=== PATIENT | male | born 1995 | race Caucasian/White ===

== ENCOUNTER 2017-12-30 08:26 | Observation (INO) | payer OTHER ==
[2017-12-30] MEDS: NS 1,000 ML IV ×4 (08:43→21:46)
[2017-12-30 09:00] LABS: HEMATOCRIT 45.3 % (42.0-52.0); HEMOGLOBIN 15.7 g/dl (13.5-17.5); MEAN CORPUSCULAR HEMOGLOBIN 30.8 pg (27.0-33.0); MEAN CORPUSCULAR HGB CONC 34.7 g/dl (32.0-36.5); PLATELET COUNT, AUTOMATED 204 10^3/uL (150-450); RED BLOOD COUNT 5.09 10^6/uL (4.30-6.10); RED CELL DISTRIBUTION WIDTH 11.9 % (11.5-14.5); WHITE BLOOD COUNT 6.5 10^3/uL (4.0-10.0)
[2017-12-30 09:03] LABS: ADD MANUAL DIFFER YES; DIFF SLIDE NUMBER 145; POS COUNT POS FLAG; POSITIVE MORPH POS FLAG
[2017-12-30 09:21] LABS: AMMONIA 62 uMOL/L (<32)
[2017-12-30 09:26] LABS: ATYPICAL LYMPH 4 % (0-5); EOSINOPHILS 2 % (0-5); LYMPHOCYTES 19 % (16-52); MONOCYTES 3 % (0-8); MYELOCYTES 1 % (0-0); NEUTROPHILS 71 % (35-75)
[2017-12-30 09:27] LABS: PLATELET ESTIMATE NORMAL (NORMAL)
[2017-12-30 09:29] LABS: ANISOCYTOSIS 1+
[2017-12-30 09:38] LABS: ACETAMINOPHEN LEVEL < 2.0 UG/ML (10.0-30.0); ALBUMIN 4.3 GM/DL (3.2-5.2); ALBUMIN/GLOBULIN RATIO 1.65 (1.00-1.93); ALKALINE PHOSPHATASE 108 U/L (45-117); ALT/SGPT 33 U/L (12-78); ANION GAP 9 MEQ/L (8-16); AST/SGOT 26 U/L (7-37); BILIRUBIN,DIRECT 0.1 MG/DL (0.0-0.2); BILIRUBIN,TOTAL 0.4 MG/DL (0.2-1.0); BLOOD UREA NITROGEN 19 MG/DL (7-18); CALCIUM LEVEL 8.7 MG/DL (8.5-10.1); CARBON DIOXIDE LEVEL 24 MEQ/L (21-32); CHLORIDE LEVEL 109 MEQ/L (98-107); CPK CREATINE PHOSPHOKINASE 274 U/L (39-308); GLUCOSE, FASTING 157 MG/DL (70-100); MB/CK RELATIVE INDEX 1.13 (< OR =4); POTASSIUM SERUM 4.1 MEQ/L (3.5-5.1); SALICYLATE LEVEL < 1.7 MG/DL (5.0-30.0); SODIUM LEVEL 142 MEQ/L (136-145); TOTAL PROTEIN 6.9 GM/DL (6.4-8.2); TROPONIN I 0.08 NG/ML (< 0.10)
[2017-12-30 09:39] LABS: ETHYL ALCOHOL (ETHANOL) < 0.003 % (0.000-0.010)
[2017-12-30 09:55] LABS: KETONE, URINE AUTO RFX NEGATIVE (NEGATIVE); LEUKOCYTE ESTERASE UR AUTO RFX NEGATIVE (NEGATIVE); MUCUS, URINE RFX SMALL (NEGATIVE); NITRITE, URINE AUTO RFX NEGATIVE (NEGATIVE); RBC, URINE AUTO RFX 3 /HPF (0-3); SPECIFIC GRAVITY UR AUTO RFX 1.013 (1.002-1.035); SQUAM EPITHELIAL CELL UR AURFX 0 /HPF (0-6); WBC, URINE AUTO RFX 6 /HPF (0-3)
[2017-12-30 10:39] LABS: AMPHETAMINES LEVEL URINE NEGATIVE (NEGATIVE); BARBITURATES URINE NEGATIVE (NEGATIVE); BENZODIAZEPINES URINE NEGATIVE (NEGATIVE); CANNABINOIDS URINE NEGATIVE (NEGATIVE); COCAINE METABOLITE URINE NEGATIVE (NEGATIVE); METHADONE URINE NEGATIVE (NEGATIVE); OPIATES URINE NEGATIVE (NEGATIVE); PHENCYCLIDINE URINE NEGATIVE (NEGATIVE)
[2017-12-30 11:08] LABS: GOLD SPEC TUBE RECIEVED
[2017-12-30] MEDS ORDERED: ACETAMINOPHEN TAB 650MG DOSE (2X325MG) PO (13:15)
[2017-12-30] MEDS: ONDANSETRON 4MG/2ML VIAL (J2405) IV ×2 (13:41→15:35)
[2017-12-30] MEDS: ENOXAPARIN 40 MG/0.4 ML SYRINGE (J1650) SC (13:41)
[2017-12-30] MEDS: SERTRALINE 100 MG TAB PO (14:51)
[2017-12-30] MEDS: buPROPion **XL** TABLET 150MG (WELLBUTRIN XL) PO (15:34)
[2017-12-30] MEDS: METOCLOPRAMIDE INJ 10MG/2ML VIAL (J2765) IV (18:48)
[2017-12-30] MEDS: AMITRIPTYLINE 25 MG TAB PO (20:01)
[2017-12-30] MEDS: busPIRone 10 MG TAB PO (20:01)
[2017-12-31] MEDS: NS 1,000 ML IV ×2 (06:32→13:58)
[2017-12-31] MEDS: SERTRALINE 100 MG TAB PO (08:39)
[2017-12-31] MEDS: busPIRone 10 MG TAB PO ×2 (08:39→21:22)
[2017-12-31] MEDS: buPROPion **XL** TABLET 150MG (WELLBUTRIN XL) PO (08:39)
[2017-12-31] MEDS: ENOXAPARIN 40 MG/0.4 ML SYRINGE (J1650) SC (08:39)
[2017-12-31 09:50] LABS: HEMATOCRIT 44.7 % (42.0-52.0); HEMOGLOBIN 14.9 g/dl (13.5-17.5); MEAN CORPUSCULAR HEMOGLOBIN 30.4 pg (27.0-33.0); MEAN CORPUSCULAR HGB CONC 33.3 g/dl (32.0-36.5); MEAN CORPUSCULAR VOLUME 91.2 fl (80.0-96.0); PLATELET COUNT, AUTOMATED 196 10^3/uL (150-450); RED CELL DISTRIBUTION WIDTH 11.9 % (11.5-14.5); WHITE BLOOD COUNT 7.2 10^3/uL (4.0-10.0)
[2017-12-31 10:16] LABS: AMMONIA 26 uMOL/L (<32)
[2017-12-31 10:23] LABS: ANION GAP 6 MEQ/L (8-16); BLOOD UREA NITROGEN 9 MG/DL (7-18); CALCIUM LEVEL 8.7 MG/DL (8.5-10.1); CARBON DIOXIDE LEVEL 27 MEQ/L (21-32); CHLORIDE LEVEL 110 MEQ/L (98-107); CREATININE FOR GFR 0.82 MG/DL (0.70-1.30); GLUCOSE, FASTING 91 MG/DL (70-100); MAGNESIUM LEVEL 2.2 MG/DL (1.8-2.4); POTASSIUM SERUM 4.1 MEQ/L (3.5-5.1); SODIUM LEVEL 143 MEQ/L (136-145)
[2017-12-31] MEDS: INFLUENZA QUADRIVALENT PF VACCINE 0.5ML SYRINGE (90686) IM (10:34)
[2017-12-31] MEDS: AMITRIPTYLINE 25 MG TAB PO (21:22)
[2018-01-01 07:06] LABS: HEMATOCRIT 42.7 % (42.0-52.0); HEMOGLOBIN 14.5 g/dl (13.5-17.5); MEAN CORPUSCULAR HEMOGLOBIN 30.4 pg (27.0-33.0); MEAN CORPUSCULAR VOLUME 89.5 fl (80.0-96.0); PLATELET COUNT, AUTOMATED 171 10^3/uL (150-450); RED BLOOD COUNT 4.77 10^6/uL (4.30-6.10); RED CELL DISTRIBUTION WIDTH 11.8 % (11.5-14.5); WHITE BLOOD COUNT 5.3 10^3/uL (4.0-10.0)
[2018-01-01 07:31] LABS: ANION GAP 8 MEQ/L (8-16); BLOOD UREA NITROGEN 11 MG/DL (7-18); CALCIUM LEVEL 8.5 MG/DL (8.5-10.1); CARBON DIOXIDE LEVEL 26 MEQ/L (21-32); CHLORIDE LEVEL 108 MEQ/L (98-107); CREATININE FOR GFR 0.76 MG/DL (0.70-1.30); GLUCOSE, FASTING 97 MG/DL (70-100); MAGNESIUM LEVEL 2.1 MG/DL (1.8-2.4); POTASSIUM SERUM 3.9 MEQ/L (3.5-5.1); SODIUM LEVEL 142 MEQ/L (136-145)
[2018-01-01] MEDS: buPROPion **XL** TABLET 150MG (WELLBUTRIN XL) PO (08:38)
[2018-01-01] MEDS: busPIRone 10 MG TAB PO (08:38)
[2018-01-01] MEDS: ENOXAPARIN 40 MG/0.4 ML SYRINGE (J1650) SC (08:56)
[2018-01-01] MEDS: SERTRALINE 100 MG TAB PO (08:56)
== END 2018-01-01 10:45 | disposition home or self-care (01) ==
LOC: M MS5PR 12-31 07:37 → M ED 08:26 → M ED INP 13:05 → M MSPAV 15:25 → M PED 22:20
DX: R41.82 Altered mental status, unspecified (principal); E86.0 Dehydration; Z79.899 Other long term (current) drug therapy; F32.9 Major depressive disorder, single episode, unspecified; R45.851 Suicidal ideations
CPT/HCPCS: J2405

== ENCOUNTER 2018-04-10 12:09 | Observation (INO) | payer OTHER ==
[~2018-04-10] VITALS: Ht 170.2 cm; Wt 80.5 kg
[~2018-04-10 12:09] MED LIST: AMIT25TA PO; BUSP10TA PO; SERT-138 PO; WELLTAB40 PO
[2018-04-10] MEDS ORDERED: diphenhydrAMINE INJ 50MG/ML VIAL (J1200) IV STA (12:31)
[2018-04-10] MEDS ORDERED: NS 1,000 ML IV SCH (12:31)
[2018-04-10 12:42] LABS: BASO % 0.3 % (0.0-1.0); EOS % 0.3 % (0.0-3.0); HEMATOCRIT 45.7 % (42.0-52.0); HEMOGLOBIN 15.4 g/dl (13.5-17.5); LYMPH % 13.4 % (24.0-44.0); MEAN CORPUSCULAR HEMOGLOBIN 30.3 pg (27.0-33.0); MEAN CORPUSCULAR HGB CONC 33.7 g/dl (32.0-36.5); MEAN CORPUSCULAR VOLUME 89.8 fl (80.0-96.0); MONO # 0.6 10^3/uL (0.0-0.8); MONO % 8.1 % (0.0-5.0); NEUTROPHILS # 5.7 10^3/uL (1.8-7.7); NEUTROPHILS % 77.2 % (36.0-66.0); RED BLOOD COUNT 5.09 10^6/uL (4.30-6.10); WHITE BLOOD COUNT 7.4 10^3/uL (4.0-10.0)
[2018-04-10] MEDS ORDERED: dexameTHASONE 20 MG/5 ML VIAL (J1100) IV ONE (12:45)
--- NOTE | 2018-04-10 12:58 | REP ---
Clinical: Drug overdose . Comparison: 12/30/2017 . Findings: The mediastinum and cardiac silhouette are stable and within normal limits for portable technique. The lung perry are clear without acute consolidation, effusion, or pneumothorax. Skeletal structures are intact. Impression: No acute cardiopulmonary process appreciated. Electronically Signed by Tomas Delatorre MD 04/10/2018 12:50 P
[2018-04-10 13:04] LABS: PLATELET COUNT, AUTOMATED 250 10^3/uL (150-450)
[2018-04-10 13:08] LABS: ACETAMINOPHEN LEVEL < 2.0 UG/ML (10.0-30.0); ALBUMIN 4.1 GM/DL (3.2-5.2); ALT/SGPT 24 U/L (12-78); BILIRUBIN,DIRECT < 0.1 MG/DL (0.0-0.2); BILIRUBIN,TOTAL 0.2 MG/DL (0.2-1.0); BLOOD UREA NITROGEN 23 MG/DL (7-18); CALCIUM LEVEL 8.8 MG/DL (8.5-10.1); CARBON DIOXIDE LEVEL 27 MEQ/L (21-32); CHLORIDE LEVEL 112 MEQ/L (98-107); CPK CREATINE PHOSPHOKINASE 118 U/L (39-308); CREATININE FOR GFR 0.86 MG/DL (0.70-1.30); ETHYL ALCOHOL (ETHANOL) < 0.003 % (0.000-0.010); GLUCOSE, FASTING 100 MG/DL (70-100); POTASSIUM SERUM 4.3 MEQ/L (3.5-5.1); SALICYLATE LEVEL < 1.7 MG/DL (5.0-30.0); SODIUM LEVEL 146 MEQ/L (136-145); THYROID STIMULATING HORMONE 0.499 uIU/ML (0.463-3.98); TOTAL PROTEIN 7.4 GM/DL (6.4-8.2)
[2018-04-10 13:17] LABS: VENOUS BASE EXCESS -0.6 (-2.0-2.0); VENOUS HCO3 24.9 MEQ/L (23.0-27.0); VENOUS O2 SATURATION 95.1 % (60.0-80.0); VENOUS PARTIAL PRESSURE CO2 44.1 mmHg (38.0-50.0); VENOUS PARTIAL PRESSURE O2 73.6 mmHg (30.0-50.0); VENOUS STANDARD HCO3 23.9 MEQ/L; VENOUS TOTAL CO2 26.3 MEQ/L (24.0-28.0)
[2018-04-10 13:19] LABS: OSMOLALITY SERUM 306 MOSM/KG (275-295)
[2018-04-10] MEDS ORDERED: LIDOCAINE VISCOUS 2% SOLN 15ML UDC SS ONE (14:45)
[2018-04-10] MEDS ORDERED: AMOXICILLIN 500 MG CAP PO ONE (14:45)
[2018-04-10] MEDS ORDERED: NS 1,000 ML IV ONE ×2 (15:00→15:30)
[2018-04-10] MEDS ORDERED: BUSP15TA47 PO (15:21)
[2018-04-10] MEDS ORDERED: AMIT50TA PO (15:21)
[2018-04-10 16:16] LABS: AMPHETAMINES LEVEL URINE NEGATIVE (NEGATIVE); BARBITURATES URINE NEGATIVE (NEGATIVE); BENZODIAZEPINES URINE NEGATIVE (NEGATIVE); CANNABINOIDS URINE NEGATIVE (NEGATIVE); COCAINE METABOLITE URINE NEGATIVE (NEGATIVE); METHADONE URINE NEGATIVE (NEGATIVE); OPIATES URINE NEGATIVE (NEGATIVE); PHENCYCLIDINE URINE NEGATIVE (NEGATIVE)
[2018-04-10] MEDS: NS 0.45% 1,000 ML IV SCH (16:42)
[2018-04-10 17:00] VITALS: BP 161/91
[2018-04-10 18:00] VITALS: BP 161/87
[2018-04-10 19:00] VITALS: BP 158/77
[2018-04-10 20:00] VITALS: BP 145/66
[2018-04-10] MEDS: AUGMENTIN 875 MG TAB PO SCH (20:44)
[2018-04-10 22:00] VITALS: BP 136/68
[2018-04-11] VITALS: BP 129/62
[2018-04-11] MEDS: NS 0.45% 1,000 ML IV SCH ×2 (00:29→09:00)
[2018-04-11 04:00] VITALS: BP 152/76
[2018-04-11 05:18] LABS: ALBUMIN 3.9 GM/DL (3.2-5.2); ALT/SGPT 23 U/L (12-78); BILIRUBIN,TOTAL 0.2 MG/DL (0.2-1.0); BLOOD UREA NITROGEN 16 MG/DL (7-18); CALCIUM LEVEL 8.8 MG/DL (8.5-10.1); CARBON DIOXIDE LEVEL 27 MEQ/L (21-32); CHLORIDE LEVEL 110 MEQ/L (98-107); CREATININE FOR GFR 0.84 MG/DL (0.70-1.30); GLUCOSE, FASTING 135 MG/DL (70-100); POTASSIUM SERUM 4.1 MEQ/L (3.5-5.1); SODIUM LEVEL 146 MEQ/L (136-145); TOTAL PROTEIN 7.3 GM/DL (6.4-8.2)
--- NOTE | 2018-04-11 07:22 | ECGEPIP ---
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
[2018-04-11 08:39] VITALS: BP 141/79
[2018-04-11] MEDS: AUGMENTIN 875 MG TAB PO SCH ×2 (11:30→20:01)
[2018-04-11 12:00] VITALS: BP 124/60
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
[2018-04-11 20:00] VITALS: BP 140/55
[2018-04-12] VITALS: BP 126/81
[2018-04-12 04:00] VITALS: BP 136/64
[2018-04-12 04:54] LABS: HEMATOCRIT 45.2 % (42.0-52.0); HEMOGLOBIN 14.7 g/dl (13.5-17.5); MEAN CORPUSCULAR HEMOGLOBIN 30.4 pg (27.0-33.0); MEAN CORPUSCULAR HGB CONC 32.5 g/dl (32.0-36.5); MEAN CORPUSCULAR VOLUME 93.6 fl (80.0-96.0); PLATELET COUNT, AUTOMATED 237 10^3/uL (150-450); RED BLOOD COUNT 4.83 10^6/uL (4.30-6.10); WHITE BLOOD COUNT 13.4 10^3/uL (4.0-10.0)
[2018-04-12 05:03] LABS: BLOOD UREA NITROGEN 17 MG/DL (7-18); CALCIUM LEVEL 8.1 MG/DL (8.5-10.1); CARBON DIOXIDE LEVEL 30 MEQ/L (21-32); CHLORIDE LEVEL 108 MEQ/L (98-107); CREATININE FOR GFR 0.86 MG/DL (0.70-1.30); GLUCOSE, FASTING 107 MG/DL (70-100); MAGNESIUM LEVEL 1.9 MG/DL (1.8-2.4); POTASSIUM SERUM 3.9 MEQ/L (3.5-5.1); SODIUM LEVEL 143 MEQ/L (136-145)
--- NOTE | 2018-04-12 06:27 | HPE ---
DATE OF ADMISSION: 04/11/2018 HISTORY OF PRESENT ILLNESS (HPI): This is a 22-year-old male with a past medical history of anxiety and depression who presents to the emergency room after being found by his fellow colleagues with a suicidal note and an empty bottle of BuSpar. The patient came to the emergency room and was awake and alert and did admit that he was wanted to commit suicide and did admit to taking the BuSpar. Poison Control was consulted and their recommendation was to monitor him for six hours; however, during this time in the emergency room (ER) his blood pressure started to fluctuate going as high as 200 systolic and then dropping back down to 130. His heart rate also Would jump form 80 to 130-120 and then come back down. That being told to Poison Control, they feel that this is more likely a side effect of the Wellbutrin though the patient denies abusing or consuming this drug. Thus, the conclusion was to observe this patient for 24 hours on observation. The patient at this time is still suicidal. He denies any other associative complaints. PAST MEDICAL HISTORY: Depression and anxiety. ALLERGIES: No known drug allergies. FAMILY HISTORY: Noncontributory. SOCIAL HISTORY: The patient denies tobacco, alcohol or illicit drugs. HOME MEDICATIONS: - Amitriptyline 50 mg orally daily - bupropion 20 mg orally daily - buspirone 50 mg orally two times a day REVIEW OF SYSTEMS: Negative for all 10 major systems except as mentioned in the HPI. VITAL SIGNS: Blood pressure 136/68, heart rate 68 and regular, respirations 20, temperature 98.9, Oxygen saturation 90% on room air. HEENT: Normocephalic atraumatic. NECK: Supple, no jugular venous distention (JVD). LUNGS: Clear to auscultation. HEART: S1, S2 audible, no murmurs appreciated. ABDOMEN: Soft, positive bowel sounds. EXTREMITIES: No pedal edema. SKIN: Intact. NEUROLOGIC EXAM: The patient is awake, alert and oriented times three. LABORATORY DATA: WBC 7.4, hemoglobin 15.4, hematocrit 45.7, Platelets 223,000. Sodium 146, potassium 4.3, chloride 112, CO2 27, BUN 23, creatinine 0.86. TSH 0.499. Urine tox was negative. Urinalysis was negative. IMPRESSION: 1. Overdose. 2. Suicidal ideation . 3. Hypernatremia. PLAN: The patient is to be admitted to the intensive care unit (ICU). Will have a one-to-one watch with him and will see how his mental status and suicidal ideations are upon the next morning. If it continues will get psychiatry consulted for clearance and for treatment. Will continue monitoring his vitals in the ICU. I am holding all of his preadmission medications for now. As far as the hypernatremia is concerned, will start half normal saline at 125 mL an hour and monitor his sodium trends. NOTE: The noncommissioned officer (NCO) spoke to me and said that his colleagues explained to him that he had wrote this suicidal note and also drank a whole bottle of whiskey the night prior so this patient's denial of drinking any alcohol beverages in the social history is false.
--- NOTE | 2018-04-12 07:09 | IPN ---
DATE: 04/11/2018 SUBJECTIVE: Patient is seen and examined in the room today. The patient denies any complaints. The patient admits that he took a large amount of BuSpar. He does not remember the exact amount but he thinks it is more than 10 pills. He admitted that it was an attempt to hurt himself. No events were reported on telemetry. Vitals stable. Appears to be . VITAL SIGNS: Temperature 97.9, pulse 79, respirations 18, blood pressure 141/79, pulse oximetry 99% in room air. GENERAL: No signs of acute distress. Alert, awake and oriented. HEENT: Normocephalic, atraumatic. Extraocular motors grossly intact. CARDIOVASCULAR: Positive S1 and S2, regular rate. LUNGS: Clear to auscultation bilaterally. ABDOMEN: Soft, nontender, nondistended. Bowel sounds present. EXTREMITIES: No edema. LABORATORY DATA: Sodium is 146, potassium 4.1, chloride is 110, carbon dioxide is 27, BUN 16, creatinine 0.8, fasting glucose 135, calcium 8.8, total bilirubin 0.2, AST 15, ALT 23, alkaline phosphatase 92, total protein 7.3, albumin 3.9. ASSESSMENT/PLAN: 1. Suicidal attempt by medication overdose. The patient is cleared by Poison Control. The patient's vitals have remained stable. The patient will be placed on diet and advance as tolerated. IV fluid will be discontinued. Psychiatry is consulted. 2. Anxiety/depression. According to the records, the patient is taking amitriptyline, Wellbutrin, and BuSpar. Those medications will be on hold at this moment. 3. Deep vein thrombosis (DVT) prophylaxis. The patient has thromboembolic deterrent stockings (TEDS) and compression ordered.
[2018-04-12 08:01] VITALS: BP 114/57
[2018-04-12] MEDS: AUGMENTIN 875 MG TAB PO SCH (09:01)
--- NOTE | 2018-04-12 11:15 | MHIPNPDOC ---
[facility] Progress Note Progress Note DATE OF SERVICE: 04/12/18 CONSULTATION REQUESTED BY: Dr. Montiel REASON FOR CONSULTATION: s/p SA by OD RELEVANT HISTORY: Pt is a 22y/o CM, AD with a history of depression and SA by OD in the past who was admitted to ICU s/p OD on a "handful" of buspar 15mg, total amount unknown, as a SA. Consulted to see pt regarding SA by OD. Pt currently in ICU and being treated and monitored medically s/p OD. Pt seen and states he's doing ok. States he took an unknown amount of buspar this morning b/c he was feeling depressed b/c he found out that his dog that lives with his family may have to be put down after being attacked by another family dog. States there are other psychosocial stressors but that is the most recent. Evasive about other stressors. States that he feels his mood is better now and that "I've learned my lesson" and doesn't want to attempt to harm himself again as he doesn't want to "loose everything." He states his current psychiatric medications are beneficial. Feels safe here and denies current SI/HI today. Pt seen today on follow-up and states he's "ok," just bored in ICU. Admits he has had intent for SI in the past multiple times that he didn't act on and this is the first time he acted on it. More open to discussing his depression and recent overdose. States he admits he doesn't often talk about his feelings. Believes that admission and unit treatment with groups on [facility] will be benefi cial for him and would like admission. Currently denies SI/HI, intent, plan. Feels safe in the hospital. MENTAL STATUS EXAMINATION: Patient is a 22-year old male, who is seen in hospital bed resting comfortable Speech is reg rate/rhythm/volume Language skills are good Thought processes including: linear/logical, depressive thoughts Thought content:denies SI/HI, AVH Abstract reasoning, and computation: intact Description of associations: appropriate Description of abnormal or psychotic thoughts: denies hallucinations and delusions Judgment: fair Insight: fair Orientation to x3 Recent and remote memory: intact Attention span and concentration: good Language: appropriate Fund of knowledge: average Mood: "bored" Affect: depressed, anxious, constricted DIAGNOSIS: 1. Depression unspecified PLAN: 1. continue with medical stabilization 2. transfer to [facility] once cleared medically Vital Signs Vital Signs Date Time Temp Pulse Resp B/P (MAP) Pulse Ox O2 Delivery O2 Flow Rate FiO2 04/12/18 08:01 99.2 68 16 114/57 (76) 99 04/10/18 12:18 Room Air Laboratory Data 24H Labs Laboratory Tests 2 04/12/18 04:36: Nucleated Red Blood Cells % (auto) 0.0, Anion Gap 5L, Blood Urea Nitrogen 17, Creatinine 0.86, Sodium Level 143, Potassium Level 3.9, Chloride Level 108H, Carbon Dioxide Level 30, Calcium Level 8.1L, Magnesium Level 1.9 CBC/BMP Laboratory Tests 04/12/18 04:36 Red Blood Count 4.83, Mean Corpuscular Volume 93.6, Mean Corpuscular Hemoglobin 30.4, Mean Corpuscular Hemoglobin Concent 32.5, Red Cell Distribution Width 12.3, Calcium Level 8.1 L Current Medications Current Medications Amoxicillin/ Clavulanate Potassium (Augmentin) 875 mg BID PO Last administered on 04/12/18 09:01; Start 04/10/18 at 21:00 Diphenhydramine HCl (Benadryl) 25 mg STAT STAT IV Last administered on 04/10/18 12:39; Start 04/10/18 at 12:31; Stop 04/10/18 at 12:34; Status DC Home Med (Med Rec Complete!) ASDIRECTED XX ; Start 04/10/18 at 15:30; Stop 04/10/18 at 15:30; Status DC Sodium Chloride 1,000 ml @ 100 mls/hr Q10H IV Last administered on 04/10/18at 12:39; Start 04/10/18 at 12:31; Stop 04/10/18 at 16:37; Status DC Sodium Chloride 1,000 ml @ 125 mls/hr Q8H IV Last administered on 04/11/18 09:00; Start 04/10/18 at 17:00; Stop 04/11/18 at 11:47; Status DC Allergies Coded Allergies: No Known Drug Allergy (Verified Allergy, Unknown, 12/30/17) NANCY VILLAGRAN DO Apr 12, 2018 10:39
--- NOTE | 2018-04-12 17:59 | DSES ---
DATE OF ADMISSION: 04/10/2018 DATE OF DISCHARGE: 04/12/2018 CONSULTANTS: Psychiatrist DISCHARGE DIAGNOSES: 1. Suicidal attempt by medication overdose. 2. Anxiety/depression. HOSPITALIZATION COURSE: The patient is a 22-year-old gentleman brought to [facility] on 04/10/2018 after intentional drug overdose. Patient was admitted under hospitalist service in the intensive care unit (ICU) and Poison Control has been following the case. Patient was started on nothing by mouth with IV fluids. Later, patient's vital signs remained stable, IV fluids discontinued, and diet advanced. Psychiatry was consulted. On 04/12/2018, patient was discharged from the hospitalist service and patient was admitted in the inpatient mental health unit (IMHU). Patient was recommended to follow up with their primary care provider. OBJECTIVE: VITAL SIGNS: Temperature 99.2, pulse 68, respiratory rate 16, blood pressure 114/57, pulse oximetry 99% in room air. LABORATORY DATA: WBC 13.4, hemoglobin 14.7, hematocrit 45.2, platelet count 237, sodium 143, potassium 3.9, chloride 108, carbon dioxide 30, BUN 17, creatinine 0.86, GFR is 107, calcium 8.1, magnesium 1.9. MICROBIOLOGY: Respiratory panel is negative. IMAGING STUDIES: Chest x-ray showed no acute cardiopulmonary process. DISCHARGE MEDICATIONS: None. At baseline, patient is taking amitriptyline with bupropion and buspirone. Due to a history of intentional drug overdose, those medications will be on hold at the time of discharge. DISCHARGE INSTRUCTIONS: Discontinue lines. Discharge patient to inpatient mental health unit (IMHU). Activity as tolerated. Diet as tolerated. Patient should followup with primary care provider at [facility] in 1 week after discharge. Patient is recommended to followup with psychiatry at scheduled time. DISCHARGE CONDITION: Fair. DISCHARGE TIME: Greater than 30 minutes.
== END 2018-04-12 14:46 ==
LOC: M ED 12:09 → EDBD 12:09 → M ED INP 16:06 → M ICU 16:49
PROVIDERS: ADMIT Internal Medicine; ATTEND Internal Medicine
DX: T14.91XA Suicide attempt, initial encounter (principal); T50.992A Poisoning by other drugs, medicaments and biological substances, intentional self-harm, initial encounter; F32.9 Major depressive disorder, single episode, unspecified; F41.9 Anxiety disorder, unspecified; E87.0 Hyperosmolality and hypernatremia; Z79.899 Other long term (current) drug therapy; Y92.9 Unspecified place or not applicable
CPT/HCPCS: 36415; 71045; 80048; 80053; 80076; 80307; 82550; 82803; 83605; 83735; 83930; 84443; 85025; 85027; 87486; 87581; 87633; 87798; 93005; 93041; 96361; 96374; 96375; 99285; G0480; J1100; J1200

== ENCOUNTER 2018-04-12 13:12 | Inpatient (IN) | payer OTHER ==
[~2018-04-12] VITALS: Ht 170.2 cm; Wt 81.8 kg
[2018-04-12] MEDS: AUGMENTIN 875 MG TAB PO SCH ×2 (09:00→22:52)
[2018-04-12] MEDS: NICOTINE 21MG/24HR 1 EA TRANSDERMAL TD SCH (09:00)
[~2018-04-12 13:12] MED LIST changes: +AMIT50TA PO; +BUSP15TA47 PO
[2018-04-12] MEDS ORDERED: MOM 30ML SUSPENSION UDC PO PRN (13:30)
[2018-04-12] MEDS ORDERED: MAALOX 30 ML SUSP *UDC PO PRN (13:30)
[2018-04-12] MEDS ORDERED: traZODone 50 MG TAB PO PRN (13:30)
[2018-04-12] MEDS ORDERED: ACETAMINOPHEN TAB 650MG DOSE (2X325MG) PO PRN (13:30)
[2018-04-12 14:57] VITALS: BP 123/73
[2018-04-12] MEDS: buPROPion **XL** TABLET 150MG (WELLBUTRIN XL) PO SCH (16:29)
[2018-04-12 18:00] VITALS: BP 122/70
[2018-04-13 06:32] VITALS: BP 123/68
[2018-04-13] MEDS: NICOTINE 21MG/24HR 1 EA TRANSDERMAL TD SCH (09:00)
[2018-04-13] MEDS: buPROPion **XL** TABLET 150MG (WELLBUTRIN XL) PO SCH (09:20)
[2018-04-13] MEDS: AUGMENTIN 875 MG TAB PO SCH ×2 (09:20→21:12)
--- NOTE | 2018-04-13 09:55 | HPEPDOC ---
[facility] Medical History & Physical Date of Admission Apr 12, 2018 History and Physical PCP: [facility] ATTENDING: Dr. Eliel Velázquez HPI: 22yoM admitted to [facility] 04/10/18-04/12/18 related to suicide attempt with in tentional drug overdose. Poison control was consulted, the Pt was medically stabilized and transferred to [facility] 04/12/18. The pt is being medically examined today. The patient reports no acute medical complaints today. Denies any fevers, chills, weakness, fatigue, MENDEZ, CP, SOB, cough, palpitations, abdominal pain, N/V/D or changes in bowel or bladder habits. PMHx: anxiety depression PSHX: denies SOCHX: Resides in: [facility], from [place]. 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 ROS: As noted in HPI, otherwise 11pt ROS of systems reviewed and unremarkable. PE: GEN: 22yoM, appears stated age. Well-nourished, well developed. No acute distress. Alert and oriented x 3. Pleasant, interactive. HEENT: Normocephalic, atraumatic. Pupils are equal, round, and reactive to light. Extraocular movements are intact. No nystagmus appreciated. Sclera are nonicteric. Conjunctiva without injection. Nose midline. Nasal turbinates without bogginess. EACs both patent BL. TMs both visualized and yusuf with good cone of light, no bulging or erythema. No facial asymmetry. Moist mucous membranes. Dentition fair. Pharynx pink and moist, no cobblestoning. Neck supple, trachea midline. No lymphadenopathy or thyromegaly appreciated. CHEST: Regular rate and rhythm, +S1, +S2 LUNGS: Clear to auscultation bilaterally. No wheezes, rales, or rhonchi. Breathing appears symmetric and easy. Patient is speaking in full sentences. No accessory muscle use. ABD: Round, soft, non-tender, non-distended. +Bowel sounds throughout. No rebound or guarding. No costovertebral angle tenderness. EXT: Pulses 2+ bilaterally dorsalis pedis and radial. No lower extremity edema appreciated. SKIN: [place], dry, warm. Capillary refill <2sec. No rashes. NEURO: Alert and oriented x 3. Cranial nerves III-XII are intact. No focal deficits appreciated. EKG: SINUS RHYTHM INCOMPLETE RIGHT BUNDLE BRANCH BLOCK ST ELEVATION CONSISTENT WITH INJURY, PERICARDITIS, OR EARLY REPOLARIZATION NONSPECIFIC ST & T-WAVE ABNORMALITY DECREASED RATE 12/30/17 Electronically Signed On 04-11-2018 7:21:57 EST by Thelma Boothe 04/10/18 RESPIRATORY PANEL Final NEGATIVE by MULTIPLEXED NUCLEIC ACID PCR 04/10/18 CXR No acute cardiopulmonary process appreciated. Electronically Signed by Tomas Delatorre MD 04/10/2018 12:50 P A&P: 22yoM admitted to [facility] 04/10/18-04/12/18 related to suicide attempt with intentional drug overdose. Pt was transferred to [facility] 04/12/18. 1. Psych. Plan per Psychiatry. EKG on file. 2. Nicotine dependence. Patch available. 3. Possible respiratory infection. Pt is afebrile. WBC 13.4 04/12/18, will recheck in AM. Pt will finish course of Augmentin. Monitor. 4. Follow up with PCP on discharge. 5. Staff member Ed present throughout exam. Vital Signs Vital Signs Date Time Temp Pulse Resp B/P (MAP) Pulse Ox O2 Delivery O2 Flow Rate FiO2 04/13/18 06:32 97.7 70 70 123/68 (86) 04/12/18 14:57 97 Laboratory Data Labs 24H Item Value Date Time White Blood Count 13.4 10^3/uL H 04/12/18 0436 Red Blood Count 4.83 10^6/uL 04/12/18 0436 Hemoglobin 14.7 g/dl 04/12/18 0436 Hematocrit 45.2 % 04/12/186 Mean Corpuscular Volume 93.6 fl 04/12/186 Mean Corpuscular Hemoglobin 30.4 pg 04/12/186 Mean Corpuscular Hemoglobin Concent 32.5 g/dl 04/12/18 0436 Red Cell Distribution Width 12.3 % 04/12/18435 Platelet Count 237 10^3/uL 04/12/18 0436 Sodium Level 143 MEQ/L 04/12/18 0436 Potassium Level 3.9 MEQ/L 04/12/18 0436 Chloride Level 108 MEQ/L H 04/12/18 0436 Carbon Dioxide Level 30 MEQ/L 04/12/18 0436 Anion Gap 5 MEQ/L L 04/12/18 0436 Blood Urea Nitrogen 17 MG/DL 04/12/18 0436 Creatinine 0.86 MG/DL 04/12/18 0436 Fasting Glucose 107 MG/DL H 04/12/18 0436 Calcium Level 8.1 MG/DL L 04/12/18 0436 Magnesium Level 1.9 MG/DL 04/12/18 0436 Salicylates Level < 1.7 MG/DL L 04/10/18 1231 Urine Opiates Screen NEGATIVE 04/10/18 1553 Urine Methadone Screen NEGATIVE 04/10/18 1553 Acetaminophen Level < 2.0 UG/ML L 04/10/18 1231 Urine Barbiturates Screen NEGATIVE 04/10/18 1553 Urine Phencyclidine Screen NEGATIVE 04/10/18 1553 Urine Amphetamines Screen NEGATIVE 04/10/18 1553 Urine Benzodiazepines Screen NEGATIVE 04/10/18 1553 Urine Cocaine Metabolite Screen NEGATIVE 04/10/18 1553 Urine Cannabinoids Screen NEGATIVE 04/10/18 1553 Ethyl Alcohol Level < 0.003 % 04/10/18 1231 Home Medications No Active Prescriptions or Reported Meds Allergies Coded Allergies: No Known Drug Allergy (Verified Allergy, Unknown, 12/30/17) Geno Morris Apr 13, 2018 09:55
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
[2018-04-13] MEDS ORDERED: hydrOXYzine 25 MG TAB PO PRN (10:45)
[2018-04-13 18:00] VITALS: BP 136/85
[2018-04-14 06:37] VITALS: BP 115/60
[2018-04-14 06:52] LABS: HEMATOCRIT 47.4 % (42.0-52.0); HEMOGLOBIN 15.8 g/dl (13.5-17.5); MEAN CORPUSCULAR HEMOGLOBIN 30.2 pg (27.0-33.0); MEAN CORPUSCULAR HGB CONC 33.3 g/dl (32.0-36.5); MEAN CORPUSCULAR VOLUME 90.6 fl (80.0-96.0); PLATELET COUNT, AUTOMATED 215 10^3/uL (150-450); RED BLOOD COUNT 5.23 10^6/uL (4.30-6.10); WHITE BLOOD COUNT 7.3 10^3/uL (4.0-10.0)
[2018-04-14] MEDS: AUGMENTIN 875 MG TAB PO SCH ×2 (08:19→20:31)
[2018-04-14] MEDS: buPROPion **XL** TABLET 150MG (WELLBUTRIN XL) PO SCH (08:19)
[2018-04-14] MEDS: NICOTINE 21MG/24HR 1 EA TRANSDERMAL TD SCH (08:20)
--- NOTE | 2018-04-14 09:58 | MHIPNPDOC ---
[facility] Progress Note Progress Note DATE OF SERVICE: 04/14/18 HISTORY: Patient is a 22 -year-old , AD, male, who was consulted on medicine prior to admission to [facility] s/p OD on unknown number (handful) of buspar as a SA. Per hospital consult by myself: "Pt is a 22y/o CM, AD with a history of depression and SA by OD in the past who was admitted to ICU s/p OD on a "handful" of buspar 15mg, total amount unknown, as a SA. Consulted to see pt regarding SA by OD. Pt currently in ICU and being treated and monitored medically s/p OD. Pt seen and states he's doing ok. States he took an unknown amount of buspar this morning b/c he was feeling depre ssed b/c he found out that his dog that lives with his family may have to be put down after being attacked by another family dog. States there are other psychosocial stressors but that is the most recent. Evasive about other stressors. States that he feels his mood is better now and that "I've learned my lesson" and doesn't want to attempt to harm himself again as he doesn't want to "loose everything." He states his current psychiatric medications are beneficial. Feels safe here and denies current SI/HI today. Pt seen today on follow-up 04/12/18 and states he's "ok," just bored in ICU. Adm its he has had intent for SI in the past multiple times that he didn't act on and this is the first time he acted on it. More open to discussing his depression and recent overdose. States he admits he doesn't often talk about his feelings. Believes that admission and unit treatment with groups on [facility] will be beneficial for him and would like admission. Currently denies SI/HI, intent, plan. Feels safe in the hospital." VITAL SIGNS: See below. NEW TEST RESULTS: See below. CURRENT MEDICATIONS: See below. MENTAL STATUS EXAMINATION: General Appearance: well groomed, appears stated age, hospital scrubs/clothing Build: average Demeanor: average Eye Contact: average Activity: average Behavior: cooperative Speech: clear, spontaneous, normal volume, reg/rate,rhythm,volume Mood: "alright" Affect: less depressed and constricted, less anxious Thought Process: logical/linear, less depressed, intact Thought Content (Delusions): none reported, denies SI, HI, AVH Thought Content (Other): none reported, appropriate Thought Content (Aggressive): none reported Perception (Hallucinations): none reported Perception (Other): none reported Cognition (Impairment of): none reported Cognition(Intelligence Est.): average Oriented: Awake, Alert, Oriented times three Insight: fair Judgment: Fair Psychosis: Denies DIAGNOSES: Major Depressive D/O recurrent, severe, w/o psychosis anxiety unspecified ASSESSMENT:Pt seen today and states he feels "alright." Continues to go to all the groups so far since coming to [facility] and is finding them beneficial. States he's tolerating the his wellbutrin xl and finding it beneficial. Denies the need for vistaril yesterday as anxiety is improved but is glad knowing it's there just in [place] he does get really anxious. States he still couldn't sleep last night due to being woken up multiple times by noises on the unit and encouraged to take trazodone for insomnia if he feels he needs it. States his mood and anxiety are improved with transfer to [facility] and denies SI/HI, hallucinations, delusions. Feels safe here. MANAGEMENT PLAN: continue current plan Medications: wellbutrin xl 300mg daily vistaril 25mg q6hr prn anxiety trazodone 50mg qhs prn insomnia TIME SPENT: 30 minutes. Vital Signs Vital Signs Date Time Temp Pulse Resp B/P (MAP) Pulse Ox O2 Delivery O2 Flow Rate FiO2 04/14/18 06:37 98.6 77 16 115/60 (78) 04/12/18 14:57 97 Laboratory Data 24H Labs Laboratory Tests 2 04/14/18 06:33: Nucleated Red Blood Cells % (auto) 0.0 CBC/BMP Laboratory Tests 04/14/18 06:33 Red Blood Count 5.23, Mean Corpuscular Volume 90.6, Mean Corpuscular Hemoglobin 30.2, Mean Corpuscular Hemoglobin Concent 33.3, Red Cell Distribution Width 12.2 Current Medications Current Medications Acetaminophen (Tylenol Tab) 650 mg Q6HP PRN PO HEADACHE or DISCOMFORT; Start 04/12/18 at 13:30 Al Hydrox/Mg Hydrox/Simethicone (Mylanta) 30 ml Q4HP PRN PO HEARTBURN/INDIGESTION; Start 04/12/18 at 13:30 Amoxicillin/ Clavulanate Potassium (Augmentin) 875 mg BID PO Last administered on 04/14/18at 08:19; Start 04/12/18 at 09:00 Bupropion HCl (Wellbutrin Xl) 300 mg QAM PO Last administered on 04/14/18at 08:19; Start 04/12/18 at 09:00 Hydroxyzine HCl (Atarax) 25 mg Q6HP PRN PO ANXIETY; Start 04/13/18 at 10:45 Magnesium Hydroxide (Milk Of Magnesia) 30 ml DAILYPRN PRN PO CONSTIPATION; Start 04/12/18 at 13:30 Nicotine (Nicoderm Cq 21mg) 1 patch DAILY TD ; Start 04/12/18 at 09:00 Trazodone HCl (Desyrel) 50 mg QHSP PRN PO INSOMNIA; Start 04/12/18 at 13:30 Allergies Coded Allergies: No Known Drug Allergy (Verified Allergy, Unknown, 12/30/17) NANCY VILLAGRAN DO Apr 14, 2018 9:58 am
[2018-04-14 18:00] VITALS: BP 123/72
[2018-04-15 06:24] VITALS: BP 122/67
[2018-04-15] MEDS: buPROPion **XL** TABLET 150MG (WELLBUTRIN XL) PO SCH (09:00)
[2018-04-15] MEDS: AUGMENTIN 875 MG TAB PO SCH (09:00)
[2018-04-15] MEDS: NICOTINE 21MG/24HR 1 EA TRANSDERMAL TD SCH (09:00)
--- NOTE | 2018-04-15 09:16 | MHDSPDOC ---
[facility] Discharge Summary Discharge Summary DATE OF ADMISSION: Apr 12, 2018 at 2:55 pm DATE OF DISCHARGE: Apr 15, 2018 DISCHARGE DIAGNOSES: Major Depressive D/O recurrent, severe, w/o psychosis anxiety unspecified REASON FOR ADMISSION: Patient is a 22 -year-old , AD, male, who was consulted on medicine prior to admission to [facility] s/p OD on unknown number (handful) of buspar as a SA. Per hospital consult by myself: "Pt is a 22y/o CM, AD with a history of depression and SA by OD in the past who was admitted to ICU s/p OD on a "handful" of buspar 15mg, total amount unknown, as a SA. Consulted to see pt regarding SA by OD. Pt currently in ICU and being treated and monitored medically s/p OD. Pt seen and states he's doing ok. States he took an unknown amount of buspar this morning b/c he was feeling depressed b/c he found out that his dog that lives with his family may have to be put down after being attacked by another family dog. States there are other psychosocial stressors but that is the most recent. Evasive about other stressors. States that he feels his mood is better now and that "I've learned my lesson" and doesn't want to attempt to harm himself again as he doesn't want to "loose everything." He states his current psychiatric medications are beneficial. Feels safe here and denies current SI/HI today. Pt seen today on follow-up 04/12/18 and states he's "ok," just bored in ICU. Admits he has had intent for SI in the past multiple times that he didn't act on and this is the first time he acted on it. More open to discussing his depression and recent overdose. States he admits he doesn't often talk about his feelings. Believes that admission and unit treatment with groups on [facility] will be beneficial for him and would like admission. Currently denies SI/HI, intent, plan. Feels safe in the hospital." CONSULTANTS INVOLVED: none TREATMENT AND PROGRESS ON THE UNIT : Pt was admitted to [facility], seen for psychiatric assessment and restarted on his outpatient medication wellbutrin xl 300mg daily. His outpatient buspar was discontinued due to having overdosed on it and his amitriptyline was discontinued due to risk of lethality should it be overdosed on. Pt stated he was fine with that. He was provided instead vistaril 25mg q6hr prn anxiety and trazodone 50mg qhs prn insomnia. Pt found his medications beneficial and tolerated them well. He attended groups daily during his stay. His symptoms improved with treatment. On day of discharge he denied depression, anxiety, insomnia, SI/HI, hallucinations, delusions. He was discharged home after J Luis meeting with follow-up at [facility]. He felt safe for discharge. DISCHARGE ASSESSMENT: Pt seen today and states he feels "good" and ready to go home with his J Luis today. Has been going to all the groups so far since coming to [facility] and finding them beneficial. States he's tolerating the his wellbutrin xl and finding it beneficial. Denies the need for vistaril as anxiety is improved but is glad knowing it's there just in [place] he does get really anxious. States he slept well last night. States his mood and anxiety are improved with transfer to [facility] and denies depression, anxiety, insomnia SI/HI, hallucinations, delusions. Feels safe to be discharged home with J Luis today. MENTAL STATUS EXAMINATION ON DISCHARGE: General Appearance: well groomed, appears stated age, hospital scrubs/clothing Build: average Demeanor: average Eye Contact: average Activity: average Behavior: cooperative Speech: clear, spontaneous, normal volume, reg/rate,rhythm,volume Mood: "good" Affect: euthymic, full range Thought Process: logical/linear, intact Thought Content (Delusions): none reported, denies SI, HI, AVH Thought Content (Other): none reported, appropriate Thought Content (Aggressive): none reported Perception (Hallucinations): none reported Perception (Other): none reported Cognition (Impairment of): none reported Cognition(Intelligence Est.): average Oriented: Awake, Alert, Oriented times three Insight: good Judgment: good Psychosis: Denies MEDICATIONS ON DISCHARGE: wellbutrin xl 300mg daily vistaril 25mg q6hr prn anxiety trazodone 50mg qhs prn insomnia PLAN/FOLLOWUP ARRANGEMENTS: D/c home with J Luis with follow-up at [facility]. The amount of time spent in the coordination of care for this patient was approximately 30 minutes. Vital Signs/I&Os Vital Signs Date Time Temp Pulse Resp B/P (MAP) Pulse Ox O2 Delivery O2 Flow Rate FiO2 04/15/18 06:24 97.6 81 16 122/67 (85) 04/12/18 14:57 97 Medications No Active Prescriptions or Reported Meds Allergies Coded Allergies: No Known Drug Allergy (Verified Allergy, Unknown, 12/30/17) NANCY VILLAGRAN DO Apr 15, 2018 9:16 am
[2018-04-15] MEDS ORDERED: TRAZO50TA PO (09:18)
[2018-04-15] MEDS ORDERED: AMOX875T2 PO (09:18)
[2018-04-15] MEDS ORDERED: HYDR-3363 PO (09:18)
[2018-04-15] MEDS ORDERED: BUPR150T3 PO (09:18)
== END 2018-04-15 11:50 | disposition home or self-care (01) | DRG 885 ==
LOC: M PSY 14:55
PROVIDERS: ADMIT Psychiatry & Neurology Psychiatry; ATTEND Psychiatry & Neurology Psychiatry
DX: F33.2 Major depressive disorder, recurrent severe without psychotic features (principal); F41.9 Anxiety disorder, unspecified; F17.200 Nicotine dependence, unspecified, uncomplicated